=== PATIENT | male | born 1975 | race Caucasian/White ===

== ENCOUNTER 2022-12-18 18:27 | Observation (INO) ==
[2022-12-18] MEDS ORDERED: Lactated Ringers 1000 ml BAG 1,000 ML IV ONE (18:38)
[2022-12-18] MEDS ORDERED: HYDROmorphone 1 MG/1 ML SYRINGE IV ONE (19:35)
[2022-12-18] MEDS ORDERED: Ondansetron 4 mg VIAL 2 MG/ML 2 ml VIAL IV ONE (19:35)
[2022-12-18 20:06] LABS: ABS Basophils 0.1 10^3/uL (0.0-0.1); ABS Eosinophils 0.1 10^3/uL (0.0-0.5); ABS Lymphocytes 0.9 10^3/uL (1.0-4.8); ABS Monocytes 0.9 10^3/uL (0.0-1.1); ABS Neutrophils 7.8 10^3/uL (1.5-7.6); Eosinophil % 0.8 %; Hematocrit 41.5 % (38-53); Hemoglobin 14.7 g/dL (13.2-16.3); Lymphocyte % 9.3 %; Mean Corpuscular Hemoglobin 31.9 pg (27-33); Mean Corpuscular Hgb Conc 35.4 g/dL (31-36); Mean Platelet Volume 8.6 fL (7.5-11.2); Platelet Count 166 10^3/uL (150-450); Red Blood Count 4.61 10^6/uL (4.06-5.63); White Blood Count 9.8 10^3/uL (3.6-10.2)
[2022-12-18 20:10] LABS: INR 1.24 (0.83-1.13)
[2022-12-18] MEDS ORDERED: Ondansetron 4 mg VIAL 2 MG/ML 2 ml VIAL IV PRN (20:17)
[2022-12-18 20:20] LABS: Calcium 9.4 mg/dL (8.6-10.3); Potassium 3.7 mmol/L (3.5-5.0)
[2022-12-18] MEDS ORDERED: cefTRIAXone 2 GM ADDV.VIAL 2 GM in NS 0.9% 100 ml BAG 100 ML IV ONE (20:25)
[2022-12-18 20:26] LABS: Creatinine, Serum 1.55 mg/dL (0.67-1.17); eGFR CKD-EPI 54.9 (>60)
[2022-12-18] MEDS ORDERED: HYDROmorphone 1 MG/1 ML SYRINGE IV SLOW PU PRN ×2 (20:28→20:29)
[2022-12-18] MEDS ORDERED: Potassium Chlor 10 meq TAB PO ONE (20:30)
[2022-12-18] MEDS ORDERED: cefTRIAXone 2 gm/50 mL D5W 2 GM/50 ML BAG IV ONE (20:45)
[2022-12-18 21:39] LABS: Urine Appearance Clear; Urine Bilirubin Negative (Negative); Urine Blood 1+ (Negative); Urine Color Yellow; Urine Glucose Negative (Negative); Urine Ketones Trace (Negative); Urine Nitrite Negative (Negative); Urine Protein Negative (Negative); Urine Specific Gravity 1.018 (1.002-1.030); Urine Urobilinogen Negative (Negative)
[2022-12-18 21:51] LABS: Urine Bacteria Absent (Absent); Urine Red Blood Cell 1+(3-5/hpf) (Absent); Urine White Blood Cell Absent (Absent)
[2022-12-18] MEDS: NS 0.9% 1000 ml BAG 1,000 ML IV SCH (22:41)
[2022-12-18] MEDS: Acetaminophen IV 1 GM/100ML 1,000 MG/100 ML BAG IV SCH (22:41)
[2022-12-19] MEDS: Acetaminophen IV 1 GM/100ML 1,000 MG/100 ML BAG IV SCH ×3 (02:36→14:12)
[2022-12-19 06:13] LABS: ABS Basophils 0.1 10^3/uL (0.0-0.1); ABS Eosinophils 0.2 10^3/uL (0.0-0.5); ABS Lymphocytes 0.9 10^3/uL (1.0-4.8); ABS Neutrophils 6.8 10^3/uL (1.5-7.6); ABS Nucleated RBC 0.01 10^3/ul; Eosinophil % 1.8 %; Hematocrit 37.6 % (38-53); Hemoglobin 13.1 g/dL (13.2-16.3); Lymphocyte % 9.9 %; Mean Corpuscular Hemoglobin 31.6 pg (27-33); Mean Corpuscular Hgb Conc 34.9 g/dL (31-36); Mean Corpuscular Volume 90.6 fL (80-97); Mean Platelet Volume 8.9 fL (7.5-11.2); Nucleated Red Blood Cells % 0.1 %/100WBC (0.0-0.8); Platelet Count 147 10^3/uL (150-450); Red Blood Count 4.16 10^6/uL (4.06-5.63); Red Cell Distribution Width 13.8 % (12-17); White Blood Count 8.9 10^3/uL (3.6-10.2)
[2022-12-19 06:32] LABS: Calcium 8.8 mg/dL (8.6-10.3); Creatinine, Serum 1.49 mg/dL (0.67-1.17); Potassium 3.8 mmol/L (3.5-5.0); eGFR CKD-EPI 57.5 (>60)
[2022-12-19] MEDS ORDERED: Iohexol 180 (CONTRAST) 10 ML SDV IV ONE (09:57)
[2022-12-19] MEDS: NS 0.9% 1000 ml BAG 1,000 ML IV SCH (14:12)
[2022-12-19 14:35] VITALS: BP 134/88
== END 2022-12-19 16:05 | disposition home or self-care (01) ==
LOC: EDHOLD 18:27 → ED 18:27 → SUATTDRO 20:17 → MED 21:03
PROVIDERS: ADMIT Internal Medicine; ATTEND Student in an Organized Health Care Education/Training Program